=== PATIENT | female | born 1970 | race Two or more races ===

== ENCOUNTER 2017-05-11 11:42 | Outpatient (CLI) | payer MEDICARE, MEDICAID ==
[~2017-05-11 11:42] MED LIST: ATEN-169 PO; CLOZ100T2 PO; COL100C PO; DOCU-28 PO; METF500T PO; POLY17PO10 PO; SIMV20TA5 PO
== END 2017-05-11 23:59 | disposition home or self-care (01) ==
LOC: CAR 11:42
DX: I10 Essential (primary) hypertension (principal); E11.9 Type 2 diabetes mellitus without complications; Z79.899 Other long term (current) drug therapy
CPT/HCPCS: 93005

== ENCOUNTER 2020-10-21 11:06 | Emergency (ER) | payer MEDICARE, MEDICAID ==
[~2020-10-21] VITALS: Ht 154.9 cm; Wt 90.0 kg
[~2020-10-21 11:06] MED LIST changes: +SIMV-42 PO; -SIMV20TA5 PO
[2020-10-21 11:10] VITALS: BP 100/71
[2020-10-21] MEDS ORDERED: TETanus/Pertussis (Acell)/Diphther VAC/PF (Tdap-Adult) 0.5ml syringe IMVAC ONE (14:30)
[2020-10-21] MEDS ORDERED: LIDOcaine 1% W/epiNEPHrine 1:200,000 10ml vial IJ ONE (14:30)
[2020-10-21] MEDS ORDERED: AMOX-422 PO (14:36)
== END 2020-10-21 15:51 | disposition home or self-care (01) ==
LOC: ER 11:06
DX: S91.311A Laceration without foreign body, right foot, initial encounter (principal); E11.9 Type 2 diabetes mellitus without complications; F20.9 Schizophrenia, unspecified; Z20.3 Contact with and (suspected) exposure to rabies; Z98.890 Other specified postprocedural states; Z88.8 Allergy status to other drugs, medicaments and biological substances; Z79.2 Long term (current) use of antibiotics; Z79.899 Other long term (current) drug therapy; W54.0XXA Bitten by dog, initial encounter; Y93.89 Activity, other specified; Y92.89 Other specified places as the place of occurrence of the external cause; Y99.8 Other external cause status
CPT/HCPCS: 12001; 90471; 90715; 99283

== ENCOUNTER 2023-07-29 14:24 | Outpatient (CLI) | payer MEDICARE, MEDICAID | END 2023-07-29 23:59 | disposition home or self-care (01) | LOC: RAD 14:24 | PROVIDERS: ATTEND Physician Assistant | DX: M19.042 Primary osteoarthritis, left hand (principal); M25.742 Osteophyte, left hand; M79.645 Pain in left finger(s) | CPT/HCPCS: 73140 ==